=== PATIENT | female | born 2000 | race Caucasian/White ===

== ENCOUNTER 2021-08-17 01:21 | Emergency (ER) | payer BC ==
[~2021-08-17] VITALS: Ht 160 cm; Wt 120.2 kg
[2021-08-17 01:57] LABS: BASOPHILS # (AUTO) 0.1 (0.0-0.1); BASOPHILS % 0.5 % (0.0-1.0); EOSINOPHILS # (AUTO) 0.5 (0.0-0.4); EOSINOPHILS % 5.1 % (0.0-6.0); HEMATOCRIT 38.7 % (34.2-44.1); HEMOGLOBIN 12.5 g/dL (12.0-16.0); LYMPHOCYTES # (AUTO) 2.7 (1.0-3.2); LYMPHOCYTES % 26.7 % (18.0-39.1); MEAN CORPUSCULAR HEMOGLOBIN 28.4 pg (28-32); MEAN CORPUSCULAR HGB CONC 32.3 g/dL (31-35); MONOCYTES # (AUTO) 0.6 (0.2-0.8); MONOCYTES % 5.6 % (4.4-11.3); NEUTROPHILS # (AUTO) 6.2 (2.1-6.9); NEUTROPHILS % 61.8 % (38.7-80.0); PLATELET COUNT 327 x10e3/uL (140-360); RED CELL DISTRIBUTION WIDTH 13.2 % (11.7-14.4)
[2021-08-17 02:38] LABS: ANION GAP 11.3 mmol/L (8-16); CALCIUM 8.3 mg/dL (8.4-10.2); CREATININE, SERUM 0.86 mg/dL (0.57-1.11); POTASSIUM 3.3 mmol/L (3.5-5.1)
== END 2021-08-17 02:59 | disposition home or self-care (01) ==
LOC: ER 01:27
DX: N93.8 Other specified abnormal uterine and vaginal bleeding (principal); E78.5 Hyperlipidemia, unspecified; K21.9 Gastro-esophageal reflux disease without esophagitis
CPT/HCPCS: 36415; 80048; 84702; 85025; 99284

== ENCOUNTER 2021-08-23 16:20 | Emergency (ER) | payer BC ==
[~2021-08-23] VITALS: Ht 160 cm; Wt 120.2 kg
[2021-08-23] MEDS ORDERED: ACETAMINOPHEN 325 MG TAB PO ONE (19:00)
[2021-08-23] MEDS ORDERED: CASIRIVIMAB/IMDEVIMAB 10 ML in SODIUM CHLORIDE 0.9% 100 ML IV ONE (19:00)
[2021-08-23] MEDS ORDERED: SODIUM CHLORIDE 0.9% 1000ML 1,000 ML IV SCH (19:00)
[2021-08-23] MEDS ORDERED: SODIUM CHLORIDE 0.9% 1000ML 1,000 ML ONE (19:05)
[2021-08-23] MEDS ORDERED: ACETAMINOPHEN 325 MG TAB ONE (19:05)
[2021-08-23 21:40] VITALS: BP 127/74
== END 2021-08-23 20:00 | disposition home or self-care (01) ==
LOC: ER 16:25
DX: U07.1 COVID-19 (principal); R50.9 Fever, unspecified; R05.9 Cough, unspecified; E78.5 Hyperlipidemia, unspecified
CPT/HCPCS: 71045; 99283; J7030; J7050; U0002

== ENCOUNTER 2021-09-12 09:37 | Observation (INO) | payer BC ==
[~2021-09-12] VITALS: Ht 160 cm; Wt 117.9 kg
[2021-09-12 10:06] LABS: BASOPHILS # (AUTO) 0.1 (0.0-0.1); BASOPHILS % 0.5 % (0.0-1.0); EOSINOPHILS # (AUTO) 0.3 (0.0-0.4); EOSINOPHILS % 2.7 % (0.0-6.0); HEMATOCRIT 37.6 % (34.2-44.1); LYMPHOCYTES % 21.7 % (18.0-39.1); MEAN CORPUSCULAR HEMOGLOBIN 28.1 pg (28-32); MEAN CORPUSCULAR HGB CONC 31.9 g/dL (31-35); MEAN CORPUSCULAR VOLUME 88.1 fL (81-99); MONOCYTES # (AUTO) 0.7 (0.2-0.8); MONOCYTES % 7.5 % (4.4-11.3); NEUTROPHILS # (AUTO) 6.1 (2.1-6.9); NEUTROPHILS % 67.3 % (38.7-80.0); PLATELET COUNT 329 x10e3/uL (140-360); RED BLOOD COUNT 4.27 x10e6/uL (3.6-5.1); RED CELL DISTRIBUTION WIDTH 13.2 % (11.7-14.4)
[2021-09-12 10:24] LABS: COLOR,URINE YELLOW (YELLOW)
[2021-09-12 10:25] LABS: CLARITY,URINE CLOUDY (CLEAR)
[2021-09-12 10:29] LABS: LEUKOCYTE ESTERASE ,URINE NEGATIVE (NEGATIVE); NITRITE,URINE NEGATIVE (NEGATIVE)
[2021-09-12 10:30] LABS: KETONES,URINE NEGATIVE (NEGATIVE); PROTEIN,URINE DIPSTICK NEGATIVE (NEGATIVE); URINE UROBILINOGEN 0.2 mg/dL (0.2 - 1)
[2021-09-12 10:32] LABS: ALBUMIN 3.5 g/dL (3.5-5.0); ALBUMIN/GLOBULIN RATIO 0.8 (0.8-2.0); CALCIUM 9.2 mg/dL (8.4-10.2); CREATININE, SERUM 0.85 mg/dL (0.57-1.11)
[2021-09-12 10:34] LABS: LIPASE 10 U/L (8-78)
[2021-09-12 10:51] LABS: BACTERIA,URINE FEW /HPF; EPITHELIAL CELLS,URINE FEW /LPF; RBC,URINE 0-5 /HPF (0-5); WBC,URINE (MAN) 0-5 /HPF (0-5)
[2021-09-12] MEDS ORDERED: SODIUM CHLORIDE 0.9% 50ML 50 ML ONE (11:19)
[2021-09-12] MEDS ORDERED: IOPAMIDOL 370 MG/ML 200 ML INFUS..BTL INJ ONE (11:20)
[2021-09-12] MEDS: SODIUM CHLORIDE 0.9% 1000ML 1,000 ML IV SCH ×2 (17:30→17:39)
[2021-09-12] MEDS: Morphine 4mg Syringe 4 MG/ML INJ IV PRN ×2 (17:39→21:22)
[2021-09-12] MEDS: ONDANSETRON HCL INJ 2MG/ML 2ML 2 MG/ML VIAL IV PRN ×2 (17:39→21:22)
[2021-09-12] MEDS: Cefoxitin 2 G in SODIUM CHLORIDE 0.9% 100 ML IV SCH ×2 (17:39→20:00)
[2021-09-12 20:00] VITALS: BP 110/71
[2021-09-13] VITALS: BP 106/58
[2021-09-13] MEDS: ONDANSETRON HCL INJ 2MG/ML 2ML 2 MG/ML VIAL IV PRN ×4 (01:10→20:31)
[2021-09-13] MEDS: Morphine 4mg Syringe 4 MG/ML INJ IV PRN ×4 (01:10→20:31)
[2021-09-13] MEDS ORDERED: SODIUM CHLORIDE 0.9% 100 ML ONE ×2 (01:17→03:04)
[2021-09-13] MEDS ORDERED: TRAZODONE HCL50 MG PO (02:07)
[2021-09-13] MEDS ORDERED: WELLBUTRIN XL150 MG PO (02:07)
[2021-09-13] MEDS: Cefoxitin 2 G in SODIUM CHLORIDE 0.9% 100 ML IV SCH ×2 (02:59→08:00)
[2021-09-13 04:00] VITALS: BP 104/58
[2021-09-13] MEDS: SODIUM CHLORIDE 0.9% 1000ML 1,000 ML IV SCH ×3 (05:15→20:32)
[2021-09-13 05:21] LABS: BASOPHILS # (AUTO) 0.1 (0.0-0.1); BASOPHILS % 0.7 % (0.0-1.0); EOSINOPHILS # (AUTO) 0.2 (0.0-0.4); EOSINOPHILS % 2.2 % (0.0-6.0); HEMATOCRIT 38.8 % (34.2-44.1); HEMOGLOBIN 11.8 g/dL (12.0-16.0); LYMPHOCYTES # (AUTO) 2.1 (1.0-3.2); LYMPHOCYTES % 23.7 % (18.0-39.1); MEAN CORPUSCULAR HEMOGLOBIN 27.8 pg (28-32); MEAN CORPUSCULAR HGB CONC 30.4 g/dL (31-35); MEAN CORPUSCULAR VOLUME 91.5 fL (81-99); MONOCYTES # (AUTO) 0.5 (0.2-0.8); MONOCYTES % 5.5 % (4.4-11.3); NEUTROPHILS # (AUTO) 6.1 (2.1-6.9); NEUTROPHILS % 67.7 % (38.7-80.0); PLATELET COUNT 316 x10e3/uL (140-360); RED BLOOD COUNT 4.24 x10e6/uL (3.6-5.1); RED CELL DISTRIBUTION WIDTH 13.2 % (11.7-14.4)
[2021-09-13 05:31] LABS: ALBUMIN 3.3 g/dL (3.5-5.0); ALBUMIN/GLOBULIN RATIO 0.8 (0.8-2.0); ANION GAP 15.9 mmol/L (8-16); CALCIUM 9.1 mg/dL (8.4-10.2); CREATININE, SERUM 0.91 mg/dL (0.57-1.11); POTASSIUM 3.9 mmol/L (3.5-5.1)
[2021-09-13] MEDS ORDERED: BUPIVACAINE 0.25% 30ML SDV ONE (07:27)
[2021-09-13 08:03] VITALS: BP 127/67
[2021-09-13] MEDS ORDERED: SUGAMMADEX SODIUM 200 MG/2 ML VIAL IV ONE (08:04)
[2021-09-13] MEDS ORDERED: ACETAMINOPHEN 1000 MG/100 ML 100 ML IV ONE (08:05)
[2021-09-13] MEDS ORDERED: ACETAMINOPHEN 1000 MG/100 ML IV PRN (09:30)
[2021-09-13] MEDS ORDERED: ONDANSETRON HCL INJ 2MG/ML 2ML 2 MG/ML VIAL ONE ×2 (10:14→13:40)
[2021-09-13] MEDS ORDERED: FENTANYL CITRATE/PF 100MCG/2 ML INJ ONE ×2 (10:14→13:40)
[2021-09-13] MEDS: PIPERACILLIN/TAZOBACTAM 3.375 GM in SODIUM CHLORIDE 0.9% 50ML 50 ML IV SCH ×2 (11:38→18:00)
[2021-09-13] MEDS ORDERED: PROPOFOL IV EMULSION 10 MG/ML 20 ML VIAL ONE (13:40)
[2021-09-13] MEDS ORDERED: POVIDONE IODINE 0.05% 0.05 % ML PO ONE (13:40)
[2021-09-13] MEDS ORDERED: KETOROLAC TROMETHAMINE 30 MG/ML VIAL ONE (13:40)
[2021-09-13] MEDS ORDERED: LIDOCAINE HCL 2% LOCAL INJ 5 ML SDV VIAL INJ ONE (13:40)
[2021-09-13] MEDS ORDERED: SUCCINYLCHOLINE CHLORIDE 20 MG/ML 10ML VIAL ONE (13:40)
[2021-09-13] MEDS ORDERED: DEXAMETHASONE SOD PHOS INJ 4 MG/ML SDV ONE (13:40)
[2021-09-13] MEDS ORDERED: ROCURONIUM BROMIDE 10 MG/ML 5ML VIAL IV ONE (13:40)
[2021-09-13] MEDS ORDERED: MIDAZOLAM HCL 2 MG/2 ML VIAL ONE (13:40)
[2021-09-13] MEDS ORDERED: PIPERACILLIN/TAZOBACTAM 3.375 GM VIAL ONE (15:13)
[2021-09-13] MEDS: HYDROCODONE/APAP 7.5MG-325MG 1 EA TAB PO PRN (15:41)
[2021-09-13 20:00] VITALS: BP 100/64
[2021-09-13 20:51] VITALS: BP 100/64
[2021-09-14] MEDS: PIPERACILLIN/TAZOBACTAM 3.375 GM in SODIUM CHLORIDE 0.9% 50ML 50 ML IV SCH ×4 (00:28→16:55)
[2021-09-14] MEDS: Morphine 4mg Syringe 4 MG/ML INJ IV PRN (00:30)
[2021-09-14] MEDS: HYDROCODONE/APAP 7.5MG-325MG 1 EA TAB PO PRN ×4 (01:45→16:55)
[2021-09-14 04:00] VITALS: BP 89/62
[2021-09-14 05:08] LABS: BASOPHILS % 0.2 % (0.0-1.0); HEMATOCRIT 32.5 % (34.2-44.1); HEMOGLOBIN 10.5 g/dL (12.0-16.0); LYMPHOCYTES # (AUTO) 1.1 (1.0-3.2); LYMPHOCYTES % 8.7 % (18.0-39.1); MEAN CORPUSCULAR HEMOGLOBIN 28.3 pg (28-32); MEAN CORPUSCULAR HGB CONC 32.3 g/dL (31-35); MEAN CORPUSCULAR VOLUME 87.6 fL (81-99); MONOCYTES # (AUTO) 0.7 (0.2-0.8); MONOCYTES % 5.4 % (4.4-11.3); NEUTROPHILS # (AUTO) 11.1 (2.1-6.9); NEUTROPHILS % 85.2 % (38.7-80.0); PLATELET COUNT 314 x10e3/uL (140-360); RED BLOOD COUNT 3.71 x10e6/uL (3.6-5.1)
[2021-09-14] MEDS: SODIUM CHLORIDE 0.9% 1000ML 1,000 ML IV SCH ×2 (05:15→12:53)
[2021-09-14 05:46] LABS: ANION GAP 11.9 mmol/L (8-16); CALCIUM 8.8 mg/dL (8.4-10.2); CREATININE, SERUM 0.82 mg/dL (0.57-1.11); POTASSIUM 3.9 mmol/L (3.5-5.1)
[2021-09-14 08:00] VITALS: BP 89/62
[2021-09-14 09:17] VITALS: BP 97/62
[2021-09-14 12:39] VITALS: BP 95/53
[2021-09-14] MEDS ORDERED: PIPERACILLIN/TAZOBACTAM 3.375 GM VIAL ONE (12:54)
[2021-09-14 16:47] VITALS: BP 93/61
== END 2021-09-14 18:53 | disposition home or self-care (01) ==
LOC: ER 09:41 → ERHOLD 13:30 → INTOOBSV 13:30 → IMCU 20:20 → OBSVTOIN 09-14 12:01 → INTOOBSV 09-14 12:01
PROVIDERS: ADMIT Surgery; ATTEND Surgery
DX: K35.80 Unspecified acute appendicitis (principal); Z20.822 Contact with and (suspected) exposure to COVID-19; U07.1 COVID-19; E66.01 Morbid (severe) obesity due to excess calories; Z68.42 Body mass index [BMI] 45.0-49.9, adult; E78.5 Hyperlipidemia, unspecified
CPT/HCPCS: 36415 ×3; 44970; 71045; 74177; 80048; 80053 ×2; 81001; 83690; 84702; 85025 ×3; 88304; 94799; 99284; G0378 ×3; J0131; J0330; J0694 ×3; J1100; J1885; J2001; J2250; J2270 ×3; J2405 ×2; J2543 ×2; J2704; J3010; J7030 ×3; J7050 ×2; Q9967; U0002

== ENCOUNTER 2023-10-14 23:57 | Emergency (ER) | payer SELFPAY ==
[~2023-10-14] VITALS: Ht 160 cm; Wt 93.0 kg
[~2023-10-14 23:57] MED LIST: TRAZODONE HCL50 MG PO; WELLBUTRIN XL150 MG PO
[2023-10-15 00:02] VITALS: O2SAT 100
[2023-10-15] MEDS ORDERED: ONDANSETRON ODT4 MG SL (00:34)
== END 2023-10-15 00:35 | disposition home or self-care (01) ==
LOC: ER 10-15
DX: S63.591D Other specified sprain of right wrist, subsequent encounter (principal); W18.39XD Other fall on same level, subsequent encounter; G47.00 Insomnia, unspecified; F32.A Depression, unspecified
CPT/HCPCS: 99283